=== PATIENT | male | born 1985 | race Caucasian/White ===

== ENCOUNTER 2016-06-29 17:37 | Emergency (ER) | payer MEDICAID, OTHER ==
[~2016-06-29] VITALS: Wt 69.1 kg
--- NOTE | 2016-06-29 20:08 | ERD ---
ER Documentation Chief Complaint Date/Time DATE: 06/29/16 TIME: 20:06 Chief Complaint weak, bodyaches HPI This a 31-year-old male who presents to the emergency department today complaining of weakness for the past couple of weeks. Patient states that he has had decreased appetite and has also lost 6 or 7 pounds in the last 6 weeks. Patient states when he is at work he feels like he has muscle cramps and pain in his legs. 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 Denies any fevers or chills, abdominal pain, sore throat, headache nausea vomiting or diarrhea ROS All systems reviewed and are negative except as per history of present illness. Medications Home Meds Active Scripts Acetaminophen* (Tylophen*) 500 Mg Capsule, 1 CAP PO Q6H Y for PAIN AND OR ELEVATED TEMP, #30 CAP Prov:ABIGAIL MITCHELL PA-C 06/29/16 Naproxen* (Naprosyn*) 500 Mg Tablet, 500 MG PO BID Y for PAIN AND/OR INFLAMMATION, #30 TAB Prov:ABIGAIL MITCHELL PA-C 06/29/16 PMhx/Soc Medical and Surgical Hx: pt denies Medical Hx, pt denies Surgical Hx History of Surgery: No Anesthesia Reaction: No Hx Neurological Disorder: No Hx Respiratory Disorders: No Hx Cardiac Disorders: No Hx Psychiatric Problems: No Hx Miscellaneous Medical Probl: No Hx Alcohol Use: No Hx Substance Use: No Hx Tobacco Use: No Smoking Status: Never smoker Physical Exam Vitals Vital Signs Date Time Temp Pulse Resp B/P Pulse Ox O2 Delivery O2 Flow Rate FiO2 06/29/16 18:47 97.4 66 20 128/66 100 Physical Exam Const: No acute distress, nontoxic-appearing Head: Atraumatic Eyes: Normal Conjunctiva ENT: Normal External Ears, Nose and Mouth. Neck: Full range of motion..~ No meningismus. Resp: Clear to auscultation bilaterally Cardio: Regular rate and rhythm, no murmurs Abd: Soft, non tender, non distended. Normal bowel sounds. Skin: No petechiae or rashes Neur: Awake and alert Psych: Normal Mood and Affect Result Diagram: 06/29/16200906/29/162009 Results 24 hrs Laboratory Tests Test 06/29/16 20:10 Alanine Aminotransferase (ALT/SGPT) 24IU/L Albumin 4.4g/dl Albumin/Globulin Ratio 1.37 Alkaline Phosphatase 100IU/L Anion Gap 18 Aspartate Amino Transf (AST/SGOT) 28IU/L Basophils # 0.010^3/ul Basophils % 0.4% Blood Urea Nitrogen 20mg/dl Calcium Level 9.3mg/dl Carbon Dioxide Level 28mmol/L Chloride Level 103mmol/L Creatinine 0.94mg/dl Direct Bilirubin 0.00mg/dl Eosinophils # 0.110^3/ul Eosinophils % 1.4% Globulin 3.20g/dl Glucose Level 97mg/dl Hematocrit 46.0% Hemoglobin 15.7g/dl Indirect Bilirubin 0.2mg/dl Lymphocytes # 2.010^3/ul Lymphocytes % 25.5% Mean Corpuscular Hemoglobin 29.7pg Mean Corpuscular Hemoglobin Concent 34.1g/dl Mean Corpuscular Volume 87.1fl Mean Platelet Volume 9.5fl Monocytes # 0.610^3/ul Monocytes % 7.7% Neutrophils # 5.010^3/ul Neutrophils % 64.7% Nucleated Red Blood Cells # 0.010^3/ul Nucleated Red Blood Cells % 0.0/100WBC Platelet Count 31395^3/UL Potassium Level 4.3mmol/L Red Blood Count 5.2810^6/ul Red Cell Distribution Width 12.5% Sodium Level 145mmol/L Total Bilirubin 0.2mg/dl Total Protein 7.6g/dl White Blood Count 7.710^3/ul Procedures/MDM This a 31-year-old male who presents to the emergency department today complaining of weakness, decreased appetite and losing 6 or 7 pounds in the last 6 weeks. 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 I did obtain basic laboratory work Laboratory work shows no elevated white blood cell count. He is not anemic. Platelets are within normal limits. Sodium is mildly elevated otherwise electrolytes are within normal limits. Glucose is within normal limits. Liver function is within normal limits. Patient is afebrile and otherwise well-appearing. His oxygen saturations 100%. He denied any abdominal pain or nausea vomiting or diarrhea. Low suspicion for acute surgical abdomen. I do not feel the patient requires further laboratory workup or imaging at this time. Patient is sitting in the waiting room and is happy and smiling. Patient has weakness of uncertain etiology at this time. Patient did indicate that he had lost 6 or 7 pounds in the last 6 weeks which I do not feel is excessive at this time. Patient will be given a prescription for Naprosyn and Tylenol for his muscle cramps while at work At this time the patient is stable for discharge and outpatient management. Patient should follow up with their PCP in the next 1-2 days. I have given him a list of resources. They may return to the emergency department sooner for any persistent or worsening of symptoms. Patient understood and agreed with the plan. Departure Diagnosis: Primary Impression: Weakness Condition: Fair ABIGAIL MITCHELL PA-C Jun 29, 2016 20:08
[2016-06-29 20:20] LABS: ADD SCAN DIFF NO
[2016-06-29 20:23] LABS: BASOPHILS % 0.4 % (0.0-2.0); EOSINOPHILS # 0.1 10^3/ul (0.0-0.5); EOSINOPHILS % 1.4 % (0.0-7.0); HEMOGLOBIN 15.7 g/dl (14.0-18.0); LYMPHOCYTES % 25.5 % (15.0-51.0); MEAN CORPUSCULAR HEMOGLOBIN 29.7 pg (29.0-33.0); MEAN CORPUSCULAR HGB CONC 34.1 g/dl (32.0-37.0); MEAN CORPUSCULAR VOLUME 87.1 fl (82.0-101.0); MEAN PLATELET VOLUME 9.5 fl (7.4-10.4); MONOCYTE # 0.6 10^3/ul (0.3-0.9); MONOCYTES % 7.7 % (0.0-11.0); NEUTROPHILS % 64.7 % (39.0-77.0); PLATELET COUNT 252 10^3/UL (140-415); RED BLOOD COUNT 5.28 10^6/ul (4.70-6.10); RED CELL DISTRIBUTION WIDTH 12.5 % (11.5-14.5); WHITE BLOOD COUNT 7.7 10^3/ul (4.8-10.8)
[2016-06-29 20:38] LABS: ALBUMIN 4.4 g/dl (3.3-4.9); POTASSIUM 4.3 mmol/L (3.5-5.1)
[2016-06-29 20:41] LABS: ALBUMIN/GLOBULIN RATIO 1.37; BILIRUBIN,INDIRECT 0.2 mg/dl (0-1.1); BILIRUBIN,TOTAL 0.2 mg/dl (0.2-1.3); CREATININE 0.94 mg/dl (0.61-1.24); TOTAL PROTEIN 7.6 g/dl (6.1-8.1)
[2016-06-29 20:42] LABS: CALCIUM 9.3 mg/dl (8.4-10.2)
[2016-06-29] MEDS ORDERED: ACET500C5 PO (21:17)
[2016-06-29] MEDS ORDERED: NAPR-260 PO (21:17)
== END 2016-06-29 21:28 | disposition left against medical advice (07) ==
LOC: FTE 17:37 → E/R 21:28
DX: R53.1 Weakness (principal)
CPT/HCPCS: 80053; 85025; Z7502; 99283